=== PATIENT | female | born 1960 | race Caucasian/White ===

== ENCOUNTER 2020-08-22 08:06 | Outpatient (REF) | payer BC, SELFPAY ==
[2020-08-22 11:31] LABS: Hematocrit 40.9 % (37-47); Hemoglobin 13.5 g/dl (12.0-16.0); Mean Corpuscular Hemoglobin 28.4 pg (27.0-33.0); Mean Corpuscular Volume 85.9 fL (80-98); Platelet Count 359 X10*3/uL (160-400); Red Blood Count 4.76 X10*6/uL (4.20-5.50); Red Cell Distribution Width 12.8 % (11.0-16.0); White Blood Count 5.2 X10*3/uL (4.8-10.8)
[2020-08-22 12:05] LABS: Alanine Aminotransferase 21 U/L (0-31); Albumin Level 4.3 g/dL (3.5-5.0); Alkaline Phosphatase 87 U/L (39-117); Anion Gap 15 (12-20); Aspartate Amino Transferase 20 U/L (5-31); Bilirubin Total 1.2 mg/dL (0.0-1.0); Blood Urea Nitrogen 16 mg/dL (9-16); Carbon Dioxide 30 mmol/L (22-29); Chloride 99 mmol/L (96-108); Cholesterol 253 mg/dL; Estimated Glomerular Filt Rate > 60; Glucose Fasting 81 mg/dL (60-99); HDL Cholesterol 80 mg/dL; LDL Cholesterol Calculated 159 mg/dl; Sodium 140 mmol/L (135-145); Total Protein 7.1 g/dL (6.5-8.0); Triglycerides 74 mg/dL
== END 2020-08-22 08:07 | disposition home or self-care (01) ==
LOC: HO.HMGCLDS 08:06
PROVIDERS: PCP Nurse Practitioner Family; Visit Provider Nurse Practitioner Family
DX: E78.2 Mixed hyperlipidemia (principal); I10 Essential (primary) hypertension; M85.89 Other specified disorders of bone density and structure, multiple sites
CPT/HCPCS: 36415; 80053; 80061; 82306; 85027

== ENCOUNTER 2023-07-15 07:25 | Day surgery (SDC) | payer BC, SELFPAY ==
--- NOTE | 2023-07-14 14:33 | P.CONAN_ITS ---
Documented by User: Nguyen Benjamin NP 07/14/23 14:33 HPI - Anesthesia Eval Consult details Narrative: 63yo F for Colonoscopy [facility] [place] Past Medical History Medical History (Updated 07/15/23 @ 09:57 by Sera Jaramillo MD) Hypercholesteremia Degenerative joint disease Asthma HTN (hypertension) Surgical History Surgical History H/O oral surgery History of carpal tunnel release H/O repair of rotator cuff Hx of tonsillectomy H/O lymph node biopsy History of surgery of uterus History of tubal ligation H/O colonoscopy Social History Social History Patient Tobacco Use Status: Never used Tobacco Meds Allergies Allergy/AdvReac Type Severity Reaction Status Date / Time Sulfa (Sulfonamide Allergy Unknown HIVES Verified 07/15/23 08:02 Antibiotics) [SULFA(SULFONAMIDE ANTIBIOTICS)] Home Medications Medication Instructions Recorded Confirmed Last Taken Type Vitamin C 07/14/23 07/14/23 Unknown History Vitamin D3 07/14/23 Unknown History atorvastatin 20 mg tablet 20 mg PO DAILY 07/14/23 07/14/23 07/13/23 History calcium 07/14/23 Unknown History hydrochlorothiazide 25 mg tablet 25 mg PO DAILY 07/14/23 07/14/23 07/13/23 History loratadine 07/14/23 Unknown History multivitamin 07/14/23 07/13/23 History Probiotic 07/15/23 07/15/23 Unknown History biotin 07/15/23 Unknown History Exam Exam Date and Time: July 14, 2023 1433 Assessment and Plan Assessment Anesthesia Assessment: Chart Reviewed Documented by User: Sera Jaramillo MD 07/15/23 09:59 [facility] [place] Past Medical History Medical History (Updated 07/15/23 @ 09:57 by Sera Jaramillo MD) Hypercholesteremia Degenerative joint disease Asthma HTN (hypertension) Family History Family history of problems with anesthesia: No Surgical History Surgical History H/O oral surgery History of carpal tunnel release H/O repair of rotator cuff Hx of tonsillectomy H/O lymph node biopsy History of surgery of uterus History of tubal ligation H/O colonoscopy History of Problems with Anesthesia: No Social History Social History Patient Tobacco Use Status: Never used Tobacco Meds Allergies Allergy/AdvReac Type Severity Reaction Status Date / Time Sulfa (Sulfonamide Allergy Unknown HIVES Verified 07/15/23 08:02 Antibiotics) [SULFA(SULFONAMIDE ANTIBIOTICS)] Home Medications Medication Instructions Recorded Confirmed Last Taken Type Vitamin C 07/14/23 07/14/23 Unknown History Vitamin D3 07/14/23 Unknown History atorvastatin 20 mg tablet 20 mg PO DAILY 07/14/23 07/14/23 07/13/23 History calcium 07/14/23 Unknown History hydrochlorothiazide 25 mg tablet 25 mg PO DAILY 07/14/23 07/14/23 07/13/23 History loratadine 07/14/23 Unknown History multivitamin 07/14/23 07/13/23 History Probiotic 07/15/23 07/15/23 Unknown History biotin 07/15/23 Unknown History Exam Height,Weight and Vital Signs: Height 5 ft 1.5 in Weight 71.668 kg Vital Signs Temp Pulse Resp BP Pulse Ox O2 Del Method 97 F 70 18 184/110 H 98 Room Air 07/15/23 07:42 07/15/23 07:42 07/15/23 07:42 07/15/23 07:42 07/15/23 07:42 07/15/23 07:42 Airway Mallampati Class: II TM Dist: >3cm Neck ROM: Full Loose/Missing/Broken Teeth: No (Denies broken, loose, missing teeth) Heart: RRR Lungs: CTAB Assessment and Plan Assessment Anesthesia Assessment: Anesthesia Plan Discussed Final Anesthetic Review Family History of Problems with Anesthesia: No History of Problems with Anesthesia: No NPO: Yes ASA Class: II Final Preanesthetic Review: No Changes in Pt Med Stat, Meds/Allgs Chart Reviewed, Consent Obtained/Reviewed and Anes Risks/Benef Reviewed Patient Risk: Low Procedure Risk: Low Assessment/Block/Sedation in SS: Assess/Block/Sedation-SS Anesthetic Plan Anesthetic Plan: MAC: Disposition: Standard PACU
[2023-07-15 05:58] VITALS: BMI 29.4
[2023-07-15 07:42] VITALS: BP 184/110; PULSE 70; RESP 18; TEMP 36.1; O2SAT 98
[2023-07-15 07:53] VITALS: BP 143/65
[2023-07-15] MEDS: Lactated Ringers 1,000 ML 100 ML IVCONT (08:02)
--- NOTE | 2023-07-15 09:07 | MHC.SHP ---
Pre-Procedural Eval Section A Date of Service: 07/15/23 Section B Chief Complaint: screening Details of Present Illness: see H&P no changes Relevant Family History (Specify if Yes): Yes Relevant Social History: None Present Medications: see Short Stay Collaborative assessment Medical History: No relevant PMH Allergies: Allergies Allergy/AdvReac Type Severity Reaction Status Date / Time Sulfa (Sulfonamide Allergy Unknown HIVES Verified 07/15/23 08:02 Antibiotics) [SULFA(SULFONAMIDE ANTIBIOTICS)] Review of Systems Sugical H&P ROS: Negative: Constitution, Cardiovascular, Respiratory, Neurological, Psychiatric, Hem-Onc, Allergic/Immunologic, Gastrointestinal, Genitourinary, Musculoskeletal, Integumentary, Endocrine and Eyes/Ears/Nose/Throat Exam Surgical H&P Exam: Normal: HEENT, Normal: Heart, Normal: Lungs, Normal: Extremities, Normal: Abdomen, Normal: Skin and Normal: Neurological Plan Diagnosis/Plan: Unchanged I have reviewed the history and physical and performed a pertinent physical examination on my patient. No changes have occurred unless specified. Time Spent With Patient Time: Total time managing care of this patient today ____ minutes.
--- NOTE | 2023-07-15 09:44 | PM.OP ---
Brief Operative Note Date of Service: 07/15/23 Pre-op diagnosis: screening Post-op diagnosis: same Surgeon: Woo Lai MD Anesthesia: MAC Was an [employer] used for this Procedure?: No Estimated blood loss (mL): 2 Pathology: other Condition: stable Disposition: PACU
[2023-07-15 09:48] VITALS: BP 126/57; PULSE 70; RESP 14; TEMP 36.3; O2SAT 99
[2023-07-15 10:03] VITALS: BP 150/52; PULSE 66; RESP 14; TEMP 36.3; O2SAT 99
--- NOTE | 2023-07-15 10:07 | OP_ITS ---
DATE OF SERVICE: 07/15/2023 SURGEON: Woo Lai MD INDICATIONS: Colon cancer screening and family history of colon polyps. PREOPERATIVE DIAGNOSIS: POSTOPERATIVE DIAGNOSIS: PROCEDURE PERFORMED: Colonoscopy to the terminal ileum with snare polypectomy and biopsy. ESTIMATED BLOOD LOSS: COMPLICATIONS: ANESTHESIA: Monitored anesthesia care. ASSISTANTS: SPECIMENS: DESCRIPTION OF PROCEDURE: A history and physical performed. The risks and benefits of the procedure were explained to the patient. Informed consent was obtained. The patient was placed in the left lateral decubitus position. A digital rectal exam was performed and was found to be normal. The Olympus pediatric video colonoscope was introduced into the rectum and advanced to the cecum. The cecum was identified by transillumination, palpation, and identification of ileocecal valve. Examination was performed. The scope was removed. She tolerated the procedure well and was returned to the recovery area in stable condition. FINDINGS: The terminal ileum was examined and appeared normal. The visualized colonic mucosa was within normal limits without evidence of masses or ulcers a single polyp measuring approximately 5 mm was identified at 55 cm from the anal verge. This was removed with a snare. Recovery of the polyp is pending at the time of this procedure. The base of the polyp was biopsied. No other polyps were identified. Retroflexed examination showed some hypertrophic anal papillae and moderate-sized internal hemorrhoids. IMPRESSION: Colon polyp. RECOMMENDATION: Follow up the biopsy results. MD DMITRI Monzon/JIM / [id number]
== END 2023-07-15 10:24 | disposition home or self-care (01) ==
PROVIDERS: PCP Nurse Practitioner Family; Visit Provider Internal Medicine Gastroenterology
PROC: 0DJD8ZZ Inspection of Lower Intestinal Tract, Via Natural or Artificial Opening Endoscopic (ICD-10-PCS; CPT 45378; principal; 2023-07-15 08:40)
DX: Z12.11 Encounter for screening for malignant neoplasm of colon (principal); Z83.719 Family history of colon polyps, unspecified; K63.5 Polyp of colon; R14.3 Flatulence; I10 Essential (primary) hypertension; E78.00 Pure hypercholesterolemia, unspecified; J45.909 Unspecified asthma, uncomplicated; Z79.899 Other long term (current) drug therapy; Z88.2 Allergy status to sulfonamides; Z87.891 Personal history of nicotine dependence; Z98.890 Other specified postprocedural states
CPT/HCPCS: 45385; 45380; 88305